=== PATIENT | male | born 1950 | race Caucasian/White ===

== ENCOUNTER 2018-02-25 16:27 | Observation (INO) | payer OTHER ==
[~2018-02-25] VITALS: Ht 182.9 cm; Wt 127.3 kg
[2018-02-25 17:38] LABS: ABSOLUTE BASOPHIL COUNT 0.1 /CUMM (0.0-0.2); ABSOLUTE EOSINOPHIL COUNT 0.4 /CUMM (0.0-0.7); ABSOLUTE LYMPH COUNT 2.7 /CUMM (1.2-3.4); BASOPHIL % 1.1 % (0.0-2.0); EOSINOPHIL % 3.7 % (0-5); GRANULOCYTE % 62.8 % (42.2-75.2); HEMATOCRIT 45.4 % (42-52); MEAN CORPUSCULAR HGB 28.9 PG (27.0-31.0); MEAN CORPUSCULAR HGB CONC 33.6 G/DL (33.0-37.0); MEAN PLATELET VOLUME 7.3 FL (7.4-10.4); PLATELET COUNT 241 /CUMM (130-400); RBC DISTRIBUTION WIDTH 14.1 % (11.5-14.5); RED BLOOD CELL CT 5.29 /CUMM (4.70-6.10); WHITE BLOOD CELL COUNT 11.2 /CUMM (4.8-10.8)
[2018-02-25 17:49] LABS: PT 11.8 SEC (9.4-12.5); PTT 29 SEC (25-37)
--- NOTE | 2018-02-25 18:19 | CT SCAN REPORT ---
EXAMINATION: CT HEAD WITHOUT CONTRAST CLINICAL INFORMATION: Blurred vision. COMPARISON: None TECHNIQUE: Contiguous axial imaging was performed from the skull base to vertex without intravenous administration of contrast. DLP: 640 mGy-cm FINDINGS: There is no evidence of acute intracranial hemorrhage or territorial infarction. No abnormal mass effect or midline shift is seen. [place] to white matter differentiation is well preserved. No extra-axial fluid collections are identified. The lateral ventricles are slightly prominent and so are the cortical sulci. There is no abnormal attenuation within the brain parenchyma. The osseous structures and soft tissues are normal. There is mild mucoperiosteal thickening bilateral ethmoid sinuses with a small retention cyst or polyp right maxillary sinus. Rest the paranasal sinuses and mastoid air cells are well-aerated. IMPRESSION: No acute intracranial process seen. Chronic bilateral ethmoid sinus inflammatory changes.
--- NOTE | 2018-02-25 19:04 | ED NEURO DEFICIT/STROKE ---
History of Present Illness General Chief Complaint: Neuro Symptoms/ Deficit Stated Complaint: SENT BY FOR NEURO SYMPTOMS Source: patient Exam Limitations: no limitations Allergies Coded Allergies: No Known Allergies (02/25/18) Triage Note: PT ER C/C "3 SECOND" EPISODE OF "WORDS BEING JUMBLED ON THE PAGE" OF WHAT HE WAS READING AND FEELING THOUGH HE WAS GOING TO PASS OUT. PT SPOKE WITH DESHAWN WATSON FROM DR. PERRIN'S OFFICE WHO ADVISED PT BE SEEN IN ER FOR R/O CVA. PT STATES AFTER THE EPISODE ALL SYMPTOMS RESOLVED AND HE WAS ABLE TO DRIVE TO AIRPORT. NEUROS INTACT IN TRIAGE, SPEECH CLEAR. Triage Nurses Notes Reviewed? yes Onset: Abrupt Timing: single episode today Severity: moderate, severe Vision Problem? Yes Glaucoma? No HPI: Pt is a 68 y/o WM with a PMH significant for TANJA, gout, HTN, HLD, who was advised to report to the ED by his PCP after stating that this morning at approx 9:30am the pt was reading a book when the words began to overlap and seem scrambled as well as having a feeling of "passing out," both of which lasted for approximately 2-3 seconds. Pt denies accompanying dizziness, lightheadedness, chest pain, extremity weakness, slurred speech, confusion prior to or post incident. Pt reports having two similar episodes several months ago. He denies a history of atrial fibrillation. He denies a hx of carotid plaques. He denies recent illness. He denies residual symptoms post incident this morning and currently feels like his normal self. Pt does report elevated lipids to >700 in the past for which he refuses to take medications, however, he states his last lipid levels revealed them to be <200. Pt states his bp has been well controlled to the best of his knowledge. His only other complaint is a possible gout flare in his left first toe. (Louis Snyder) Vital Signs & Intake/Output Vital Signs & Intake/Output Vital Signs Date Time Temp Pulse Resp B/P B/P Pulse O2 O2 Flow FiO2 Mean Ox Delivery Rate 02/26 0733 64 128/80 02/26 0654 97.0 64 18 128/80 97 CPAP 02/25 2355 95 02/25 2322 97.9 60 19 138/90 98 02/25 2150 97.0 60 18 133/76 98 Room Air 02/25 1845 98.2 63 18 136/81 98 Room Air 02/25 1801 Room Air 02/25 1639 98.0 69 18 104/73 96 Room Air ED Intake and Output 02/26 0000 02/25 1200 Intake Total Output Total Balance Patient 281 lb Weight Weight Estimated Measurement Method Reconcile Medications Albuterol Sulfate (Ventolin Hfa) 90 MCG HFA.AER.AD 2 PUF INH Q4-6 PRN PRN sob (Reported) Allopurinol 100 MG TABLET 1 TAB PO DAILY Gout (Reported) Colchicine 0.6 MG TABLET 1 TAB PO DAILY PRN gout attack (Reported) Hydrochlorothiazide 25 MG TABLET 25 MG PO DAILY HIGH BP . Metoprolol Succinate 200 MG TAB.ER.24H 1 TAB PO DAILY heart health (Reported) Potassium Chloride 20 MEQ TAB.ER.PRT 1 TAB PO DAILY heart health (Reported) Triamterene (Dyrenium) 50 MG CAPSULE 1.5 TAB PO DAILY High BP To take 75 mg daily (Ally NORIEGA,Den Murry) Past History Travel History Traveled to [place] past 21 day No Medical History Any Pertinent Medical History? see below for history Cardiovascular: hypertension Musculoskeletal: gout Tetanus Vaccine: Surgical History Surgical History: non-contributory Psychosocial History What is your primary language Gibraltarian Tobacco Use: Never used Family History Hx Contributory? No (Louis Snyder) Review of Systems Review of Systems Constitutional: Reports: no symptoms. EENTM: Reports: no symptoms. Respiratory: Reports: no symptoms. Cardiovascular: Reports: no symptoms. GI: Reports: no symptoms. Genitourinary: Reports: no symptoms. Musculoskeletal: Reports: no symptoms. Skin: Reports: no symptoms. Neurological/Psychological: Reports: see HPI. Hematologic/Endocrine: Reports: no symptoms. Immunologic/Allergic: Reports: no symptoms. All Other Systems: Reviewed and Negative (Louis Snyder) Physical Exam Physical Exam General Appearance: well developed/nourished, no apparent distress, alert, awake , comfortable Head: atraumatic, normal appearance Eyes: Bilateral: normal appearance, PERRL, EOMI. Ears, Nose, Throat: normal ENT inspection, moist mucous membrane Neck: supple, full range of motion Respiratory: normal breath sounds, chest non-tender, no respiratory distress Cardiovascular: regular rate/rhythm Peripheral Pulses: 2+ dorsalis pedis (R), 2+ dorsalis pedis (L) Gastrointestinal: soft, non-tender Back: normal inspection Extremities: normal range of motion, L first toe slightly erythemetous, tender to deep palpation. Psychiatric: awake, alert, oriented x 3 Cranial Nerves: normal hearing, normal speech, PERRL Coordination/Gait: normal finger to nose, Rapid alternating movements in tact Motor/Sensory: no motor/sensory deficits (strength 5/5, equal bilat U&LE) Skin: normal color Core Measures CVA/TIA Diagnosis: Yes Swallow Evaluation Pass Swallow eval date 02/25/18 Swallow eval time 2017 Sepsis Present: No Sepsis Focused Exam Completed? No (Charbel BISHOP,Louis) Progress Differential Diagnosis: acute glaucoma, Colon's Palsy, drug intoxication, electrolyte imbalance, encephalitis, hypoglycemia, intracranial Hem., intracranial mass/tumor, meningitis, migraine BROWN, seizure disorder, stroke, subarachnoid Hem., vertebrobasilar insuff. Plan of Care: Orders Procedure Date/time Status CONTIN. POS. AIRWAY PRESS. CHG 02/26 UNK Complete Diagnostic Imaging: Viewed by Me: CT Scan. Discussed w/RAD: CT Scan. Radiology Impression: PATIENT: TANVI REARDON PRESENT AGE: 68 PATIENT ACCOUNT NO: [id number] : 50 LOCATION: [facility] ORDERING PHYSICIAN: Magdy BISHOP SERVICE DATE: 02/25/18 EXAM TYPE: CAT - CT HEAD WO IV CONTRAST EXAMINATION: CT HEAD WITHOUT CONTRAST CLINICAL INFORMATION: Blurred vision. COMPARISON: None TECHNIQUE: Contiguous axial imaging was performed from the skull base to vertex without intravenous administration of contrast. DLP: 640 mGy-cm FINDINGS: There is no evidence of acute intracranial hemorrhage or territorial infarction. No abnormal mass effect or midline shift is seen. [place] to white matter differentiation is well preserved. No extra-axial fluid collections are identified. The lateral ventricles are slightly prominent and so are the cortical sulci. There is no abnormal attenuation within the brain parenchyma. The osseous structures and soft tissues are normal. There is mild mucoperiosteal thickening bilateral ethmoid sinuses with a small retention cyst or polyp right maxillary sinus. Rest the paranasal sinuses and mastoid air cells are well-aerated. IMPRESSION: No acute intracranial process seen. Chronic bilateral ethmoid sinus inflammatory changes. DICTATED BY: Mena NORIEGA,Tristan DATE/ TIME DICTATED:02/25/181812 ARTIFICIAL LEATHER CALENDER OPERATOR:KRISTY DATE/TIME TRANSCRIBED: 02/25/181812 CONFIDENTIAL, DO NOT COPY WITHOUT APPROPRIATE AUTHORIZATION. < Electronically signed in Other Vendor System> SIGNED BY: Tristan San MD 1818 Initial ED EKG: normal sinus rhythm, rate (64) (Louis Snyder) Departure Departure Disposition: STILL A PATIENT Condition: Stable Clinical Impression Primary Impression: TIA (transient ischemic attack) Referrals: Miya Perrin MD (PCP/Family) Departure Forms: Customer Survey General Discharge Information Observation Note Spoke With: Yobany NORIEGA,Gosia Physician Advisor Notified: JANET NORIEGA,GEE Murry Place Patient In: Non-ED OBS Care Area Rationale for Observation: My rational for observation is as follows . Patient will require repeat neuro checks. Cardiac telemetry. Carotid artery Dopplers. Neurology consultation. Cardiac consultation. echocardiogram. MRI of brain if available. (Louis Snyder) Departure Prescriptions: Current Visit Scripts Triamterene (Dyrenium) 1.5 TAB PO DAILY #45 TAB To take 75 mg daily Hydrochlorothiazide 25 MG PO DAILY #30 TAB . PA/COIN DEALER Co-Sign Statement Statement: ED Attending supervision documentation- [X] I saw and evaluated the patient. I have also reviewed all the pertinent lab results and diagnostic results. I agree with the findings and the plan of care as documented in the PA's/COIN DEALER's documentation. [X] I have reviewed the ED Record and agree with the PA's/COIN DEALER's documentation. [] Additions or exceptions (if any) to the PAs/COIN DEALER's note and plan are summarized below: [Telemetry for TIA, serial enzymes, telemetry monitoring, neurology consultation ] (lAly NORIEGA,Den Murry) LIPID PANEL 02/25 1726 Complete WESTERGREN SED RATE 02/25 1726 Complete TROPONIN LEVEL 02/25 170 Complete PARTIAL THROMBOPLASTIN TIME 02/25 170 Complete PROTHROMBIN TIME 02/25 170 Complete COMPREHENSIVE METABOLIC PANEL 02/25 170 Complete CBC WITHOUT DIFFERENTIAL 02/25 170 Complete CONTIN. POS. AIRWAY PRESS. CHG 02/25 UNK Complete Lab Add-on Test 02/25 UNK Active VTE Mechanical Prophylaxis 02/25 UNK Active MISTAKE 02/25 UNK Active Current Medications Sig/Andreina Start time Last Medication Dose Stop Time Status Admin Allopurinol 100 MG DAILY 02/26 1000 AC 02/26 (Zyloprim) 0732 Hydrochlorothiazide 50 MG DAILY 02/26 1000 AC 02/26 (Hydrodiuril) 0732 Metoprolol Succinate 200 MG DAILY 02/26 1000 AC 02/26 (Toprol Xl) 0733 Heparin Sodium 5,000 UNIT Q8 02/26 0600 AC (Porcine) Laboratory Tests 02/26/18 0638: Anion Gap 10, Estimated GFR > 60, BUN/Creatinine Ratio 15.8, CBC w Diff NO MAN DIFF REQ, RBC 5.21, MCV 86.8, MCH 29.0, MCHC 33.4, RDW 14.1, MPV 7.6, Gran % 59.9, Lymphocytes % 26.4, Monocytes % 8.9, Eosinophils % 4.2, Basophils % 0.6, Absolute Granulocytes 6.6 H, Absolute Lymphocytes 2.9, Absolute Monocytes 1.0 H, Absolute Eosinophils 0.5, Absolute Basophils 0.1, Urine Color YEL, Urine Clarity CLEAR, Urine pH 6.0, Ur Specific [place] 1.025, Urine Protein NEG, Urine Ketones NEG, Urine Nitrite NEG, Urine Bilirubin NEG, Urine Urobilinogen 0.2, Ur Leukocyte Esterase NEG, Ur Microscopic EXAM NOT REQUIRED, Urine Hemoglobin NEG, Urine Glucose NEG 02/26/18 0410: Troponin I < 0.01 02/25/18 1726: Anion Gap 9, Estimated GFR 50 L, BUN/Creatinine Ratio 14.3, Glucose 124 H, Calcium 9.5, Total Bilirubin 1.2, AST 25, ALT 22, Alkaline Phosphatase 70, Troponin I < 0.01, Total Protein 7.5, Albumin 4.1, Globulin 3.4, Albumin/ Globulin Ratio 1.2, Triglycerides 298 H, Cholesterol 187, LDL Cholesterol, Calc 78, HDL Cholesterol 50, Cholesterol/HDL Ratio 4, TSH 2.260, PT 11.8, INR 1.08, APTT 29, CBC w Diff NO MAN DIFF REQ, RBC 5.29, MCV 86.0, MCH 28.9, MCHC 33.6, RDW 14.1, MPV 7.3 L, Gran % 62.8, Lymphocytes % 23.9, Monocytes % 8.5, Eosinophils % 3.7, Basophils % 1.1, Absolute Granulocytes 7.0 H, Absolute Lymphocytes 2.7, Absolute Monocytes 1.0 H, Absolute Eosinophils 0.4, Absolute Basophils 0.1, ESR Westergren 13 H (Ally NORIEGA,Den Murry) Departure Departure Disposition: STILL A PATIENT Condition: Stable Clinical Impression Primary Impression: TIA (transient ischemic attack) Referrals: Miya Perrin MD (PCP/Family) Departure Forms: Customer Survey General Discharge Information Observation Note Spoke With: Gosia Haywood MD Physician Advisor Notified: JANET NORIEGA,GEE [address] Patient In: Non-ED OBS Care Area Rationale for Observation: My rational for observation is as follows . Patient will require repeat neuro checks. Cardiac telemetry. Carotid artery Dopplers. Neurology consultation. Cardiac consultation. echocardiogram. MRI of brain if available. (Louis Snyder) PA/COIN DEALER Co-Sign Statement Statement: ED Attending supervision documentation- [X] I saw and evaluated the patient. I have also reviewed all the pertinent lab results and diagnostic results. I agree with the findings and the plan of care as documented in the PA's/COIN DEALER's documentation. [X] I have reviewed the ED Record and agree with the PA's/COIN DEALER's documentation. [] Additions or exceptions (if any) to the PAs/COIN DEALER's note and plan are summarized below: [Telemetry for TIA, serial enzymes, telemetry monitoring, neurology consultation ] (Ally NORIEGA,Den Murry)
[2018-02-25] MEDS ORDERED: ALLOPURINOL100 M1 PO (21:05)
[2018-02-25] MEDS ORDERED: VENTOLIN HFA18 GM INH (21:06)
[2018-02-25] MEDS ORDERED: COLCHICINE0.6 M2 PO (21:06)
[2018-02-25] MEDS ORDERED: POTASSIUM CHLO20 ME2 PO (21:07)
[2018-02-25] MEDS ORDERED: METOPROLOL SUC200 M2 PO (21:08)
[2018-02-25] MEDS ORDERED: MAXZIDE 75 MG-1 EACH PO (21:08)
--- NOTE | 2018-02-25 23:06 | History & Physical ---
Charlie Tineo MD 02/25/18 1516: General Information and HPI MD Statement: I have seen and personally examined TANVI REARDON and documented this H&P. The patient is a 68 year old M who presented with a patient stated chief complaint of felt faint and trouble reading. Source of Information: patient, old records Exam Limitations: no limitations History of Present Illness: 68 year old male with past medical history significant for hypertension, hyperlipidemia, diverticulosis, gout, "lazy eye", and TANJA on CPAP 4cm h2o presented with complaints of presyncope and difficulty reading. The patient states he was reading at approximately 0930 this morning when he felt suddenly that the two pages were merging and "scrambled" and has having difficulty reading. Simultaneously he reported feeling lightheaded like he was going to pass out but did not. These symptoms resolved less than a minute and he felt well and was able to drive his to the airport. He called his primary care office in the afternoon but was advised to go to the emergency department because he was unable to come in for evaluation in the office at that time. He said that his vision problems improved when he closed his left eye and that there was no loss of clarity to the letters or loss of visual acuity. He states that he has had a total of three episodes in the past couple months. The first was very similar while seated and doing a word search puzzles, the second in the kitchen standing suddenly from a seated position without visual component, and the third episode was this morning. He wears glasses for distance. He endorses left ear pain a few days ago, and occasional tinnitus. He denies fevers, chills , sore throat, nasal or sinus tenderness, vertigo, falls, gait instability, headache or jaw claudication. He had a gout flare four days ago in the left great toe for which he took colchicine and has subsequently resolved. Review of systems was otherwise negative for chest pain, cough, dyspnea, abdominal pain, nausea, vomiting, diarrhea, constipation or dysuria. In the ED, he had a negative NCHCT and was admitted to telemetry for observation. Allergies/Medications Allergies: Coded Allergies: No Known Allergies (02/25/18) Home Med list Albuterol Sulfate (Ventolin Hfa) 90 MCG HFA.AER.AD 2 PUF INH Q4-6 PRN PRN sob (Reported) Allopurinol 100 MG TABLET 1 TAB PO DAILY Gout (Reported) Colchicine 0.6 MG TABLET 1 TAB PO DAILY PRN gout attack (Reported) Metoprolol Succinate 200 MG TAB.ER.24H 1 TAB PO DAILY heart health (Reported) Potassium Chloride 20 MEQ TAB.ER.PRT 1 TAB PO DAILY heart health (Reported) Triamterene/Hydrochlorothiazid (Maxzide 75 MG-50 MG Tablet) 75 MG-50 MG TABLET 1 TAB PO DAILY htn (Reported) Compliance With Home Meds: GOOD Past History Travel History Traveled to [place] past 21 day No Medical History Blood Transfusion Hx: No EENT: "LAZY EYE" Cardiovascular: hypertension Musculoskeletal: gout Isolation History: Standard Tetanus Vaccine: Surgical History Surgical History: cholecystectomy, R knee, tonsillectomy Past Family/Social History Psychosocial History Smoking Status: Never Smoked Functional Ability ADLs Independent: dressing, eating, toileting, bathing. Ambulation: independent IADLs Independent: shopping, housework, finances, food prep, telephone, transportation , medication admin. Review of Systems Review of Systems Constitutional: Denies: chills, diaphoresis, fever, malaise, weakness. EENTM: Reports: blurred vision, double vision, visual changes, ear pain. Cardiovascular: Denies: chest pain, edema, palpitations, peripheral edema, syncope. Respiratory: Denies: cough, short of breath, sputum production. GI: Denies: abdominal pain, constipation, diarrhea, melena, nausea. Genitourinary: Denies: dysuria, frequency. Musculoskeletal: Reports: no symptoms. Skin: Reports: no symptoms. Neurological/Psychological: Denies: ataxia, headache, numbness, paresthesia, weakness. Hematologic/Endocrine: Reports: no symptoms. Immunologic/Allergic: Reports: no symptoms. All Other Systems: Reviewed and Negative Exam & Diagnostic Data Last 24 Hrs of Vital Signs/I&O Vital Signs Date Time Temp Pulse Resp B/P B/P Pulse O2 O2 Flow FiO2 Mean Ox Delivery Rate 02/25 2355 95 02/25 2322 97.9 60 19 138/90 98 02/25 2150 97.0 60 18 133/76 98 Room Air 02/25 1845 98.2 63 18 136/81 98 Room Air 02/25 1801 Room Air 02/25 1639 98.0 69 18 104/73 96 Room Air Intake & Output 02/26 0800 04 0000 04/02 1600 Intake Total Output Total Balance Patient 127.261 kg Weight Weight Estimated Measurement Method Physical Exam General Appearance Alert, Oriented X3, Cooperative, No Acute Distress Cardiovascular Regular Rate, Normal S1, Normal S2, No Murmurs Lungs Clear to Auscultation, Normal Air Movement Abdomen Normal Bowel Sounds, Soft, No Tenderness, No Masses Neurological Normal Gait, Normal Speech, Strength at 5/5 X4 Ext, Normal Tone, Sensation Intact, cranial nerves intact other than failure to adduct right eye on accomodation but all visual lundy and acuity intact and disconjugate eye movements on tracking, tatum hallpike negative Extremities No Clubbing, No Cyanosis, No Edema, Normal Pulses Last 24 Hrs of Labs/Mitchel: Laboratory Tests 02/26/18 0410: Troponin I Pending 02/25/18 1726: Anion Gap 9, Estimated GFR 50 L, BUN/Creatinine Ratio 14.3, Glucose 124 H, Calcium 9.5, Total Bilirubin 1.2, AST 25, ALT 22, Alkaline Phosphatase 70, Troponin I < 0.01, Total Protein 7.5, Albumin 4.1, Globulin 3.4, Albumin/ Globulin Ratio 1.2, Triglycerides Pending, Cholesterol Pending, LDL Cholesterol, Calc Pending, HDL Cholesterol Pending, Cholesterol/HDL Ratio Pending, TSH 2.260, PT 11.8, INR 1.08, APTT 29, CBC w Diff NO MAN DIFF REQ, RBC 5.29, MCV 86.0, MCH 28.9, MCHC 33.6, RDW 14.1, MPV 7.3 L, Gran % 62.8, Lymphocytes % 23.9, Monocytes % 8.5, Eosinophils % 3.7, Basophils % 1.1, Absolute Granulocytes 7.0 H, Absolute Lymphocytes 2.7, Absolute Monocytes 1.0 H, Absolute Eosinophils 0.4 , Absolute Basophils 0.1, ESR Westergren 13 H Diagnostic Data EKG Results sinus rhythm HR 64, TWI in v1 and v2 Other Results NCHCT There is no evidence of acute intracranial hemorrhage or territorial infarction. No abnormal mass effect or midline shift is seen. [place]ios to white matter differentiation is well preserved. No extra-axial fluid collections are identified. The lateral ventricles are slightly prominent and so are the cortical sulci. There is no abnormal attenuation within the brain parenchyma. The osseous structures and soft tissues are normal. There is mild mucoperiosteal thickening bilateral ethmoid sinuses with a small retention cyst or polyp right maxillary sinus. Rest the paranasal sinuses and mastoid air cells are well-aerated. echo 08/2013 Tecehnically dificult and suboptimal study. Mild concentric left ventricular hypertrophy. Normal left ventricular ejection fraction visually estimated at >65 Abnormal relaxation filling pattern of the left ventricle for age (stage 1 diastolic dysfunction). Borderline dilated ascending aorta. No significant valve abnormalities. Physiologic valvular regurgitation. Assessment/Plan Assessment: 68 year old male with past medical history significant for hypertension, hyperlipidemia, diverticulosis, gout, "lazy eye", and TANJA on CPAP 4cm h2o presented with complaints of presyncope and difficulty reading. Presyncope: NCHCT negative for acute hemorrhage or ischemic infarction TIA unlikely, visual complaints are not acute Check carotid doppler Orthostatic vital signs negative Check serial troponins and EKGs to evaluate for myocardial ischemia Check echocardiogram Start aspirin and statin therapy Cardiology consultation Q4H neurochecks Repeat CT Head for any acute mental status changes Elevated creatinine: 1.4 on arrival, previously 1.2 Holding triamterene Orthostatics negative Continuing HCTZ Avoid further nephrotoxic agents Repeat renal function tomorrow Mild leukocytosis: WBC 11.2, without bandemia or signs and symptoms of infection Follow up WBC on morning CBC HTN: Continue metoprolol Hold triamterene Continue HCTZ HLD: Check lipid panel and start statin therapy TANJA: TRC-CPAP set up Visual complaint with disconjugate eye movements: Outpatient opthalmology referral Heart healthy diet DVT ppx-heparin 5000 units subcutaneous q8h Full code As Ranked By This Provider Problem List: 1. Pre-syncope Core Measures/Misc (08/12) Acute Coronary Syndrome ACS Diagnosis: No Congestive Heart Failure Congestive Heart Failure Diagnosis No Cerebrovascular Accident CVA/TIA Diagnosis: No VTE (View Protocol) VTE Risk Factors Age>40 No Mechanical VTE Prophylaxis d/t N/A MechProphylax Ordered No VTE Pharm Prophylaxis d/t NA PharmProphylax ordered Sepsis (View protocol) Sepsis Present: No Gosia Haywood 02/26/18 0335: Attending MD Review Statement Attending Statement Attending MD Statement: examined this patient, discuss w/resident/PA/CONTROL INTEGRATION ENGINEER, agreed w/resident/PA/CONTROL INTEGRATION ENGINEER, reviewed EMR data (avail), reviewed images, amended to note Attending Assessment/Plan: CC: Dizziness PMH: TANJA on CPAP, gout, HTN, HLD Patient came to ER for a brief episode of dizziness. He states that he was reading a book and he felt like both pages of the books were merging and felt like almost passing out. But he did not actually pass out. These symptoms lasted for a few seconds. He called his primary care office who suggested to go to ER for further evaluation. Patient had 3 such episodes in last 2 months. Patient states that his vision with left eye was worse but then it improved. He also endorses mild tinnitus. He denies any chest pain, shortness of breath, nausea, vomiting, fever, chills, cough, expectoration. Vitals: Afebrile, pulse is 60s, RR 18, blood pressure 104/73 on arrival, saturating well on room air. On exam: A O 3, cooperative, no acute distress, neck supple, JVD normal, no lymphadenopathy, mucosa moist, PERRLA, EOMI, no focal neurological deficit, no dependent edema, no obvious skin rashes or inflammation CVS: S1-S2, RRR. RS: Clear to auscultate bilaterally. Abdomen: Soft, NT, ND, bowel sounds present. CT head: No acute intracranial process seen. Chronic bilateral ethmoid sinus inflammatory changes. Assessment and plan 68-year-old male presented in ER after an episode of "almost passing out", it happened at rest, lasted a few seconds, not associated with chest pain, diaphoresis. It was not preceded by any coughing spell, urination or bowel movement less likely vasovagal. ECG shows normal sinus rhythm, complete examination unremarkable but patient's blood pressure was 104/73 on arrival. Orthostatic was negative. Unclear etiology of presyncopal episode. Given that he has 3 such episodes in last 2 months, he would benefit from observation on telemetry and evaluation for presyncope. + Presyncopal episode + ? Vision changes + History of TANJA on CPAP, gout, HTN, HLD - Place in observation on telemetry - Continuous telemetry monitoring - Serial troponin and EKG - Orthostatic vitals in a.m. - 2-D echocardiogram in a.m. - carotid doppler - Hold triamterene, continue HCTZ only, continue metoprolol - Cardiology consult - DVT prophylaxis - Adequate pain control - Outpatient ophthalmology evaluation - Serial neuro checks Gladys NORIEGA,[facility] 02/26/18 0351: Resident Review Statement Resident Statement: examined this patient, discussed with international accountant, agreed with international accountant, discussed with family Other Findings: 68-year-old male with a past medical history of gout, HTN, HLD, and obstructive sleep apnea on CPAP who presented with a chief complaint of brief episode of blurry vision and dizziness that lasted for few less than a minute. The patient reported that he was reading a book when he suddenly had difficulty focusing on the word and felt mildly dizzy. He reported that when he closes his left eye has symptom improved. 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 The patient had 2 more episodes during the last 2 months. He reported mild ear tinnitus but denies hearing change, ear discharge, ear pain. He denies chest pain, shortness breath, weakness, numbness, or loss of consciousness. On admission: Vitals BP 104/70, HR 60s, RR 18, afebrile and saturating well on room air. Significant labs leukocytosis 11.2, bicarbonate 36, creatinine 1.4, glucose 124, and normal TSH. Head CT no acute intracranial pathology. Physical Exam: Alert and oriented X3, not in acute distress. CVS normal S1/S2, RRR, without MRGs, Resp CTA BL without additional sounds. Normal abdominal exam. Neuro normal strength and sensation X4 with normal cranial nerves except for abnormal eye convergence. Assessment The patient presented with symptoms of presyncopal, he is on beta tatum and triamterene/HCTZ. His symptom possibly orthostatic as one of his episodes was after he stood from sitting position. His last episode happened during sitting and reading a book for which the patient may benefit from telemetry and carotid ultrasound. Problem list * Presyncopal episode * Blurry vision patient left eye * History of obstructive sleep apnea on CPAP * Hypertension * Hyperlipidemia * Gout * Elevated creatinine up to 1.4, unknown baseline possibly FAHEEM * Mild leukocytosis Plan * Monitoring telemetry as an OBS patient * Continue metoprolol and hydralazine * We'll hold triamterene * Carotid ultrasound. * ESR to rule out temporal arteritis * Rule out ACS with serial EKG and troponin * Echocardiogram * Cardiology consult * Continue allopurinol * Continue nighttime CPAP * Repeat renal function tomorrow * We will send for UA given elevated WBCs -Heart healthy diet -DVT prophylaxis with heparin -FC
[2018-02-25 23:22] VITALS: BP 138/90
[2018-02-26 06:54] VITALS: BP 128/80
[2018-02-26 08:29] LABS: ABSOLUTE BASOPHIL COUNT 0.1 /CUMM (0.0-0.2); ABSOLUTE EOSINOPHIL COUNT 0.5 /CUMM (0.0-0.7); ABSOLUTE GRANULOCYTE CT 6.6 /CUMM (1.4-6.5); ABSOLUTE LYMPH COUNT 2.9 /CUMM (1.2-3.4); BASOPHIL % 0.6 % (0.0-2.0); EOSINOPHIL % 4.2 % (0-5); GRANULOCYTE % 59.9 % (42.2-75.2); HEMATOCRIT 45.2 % (42-52); MEAN CORPUSCULAR HGB CONC 33.4 G/DL (33.0-37.0); MEAN CORPUSCULAR VOLUME 86.8 FL (80.0-94.0); MEAN PLATELET VOLUME 7.6 FL (7.4-10.4); PLATELET COUNT 234 /CUMM (130-400); RBC DISTRIBUTION WIDTH 14.1 % (11.5-14.5); RED BLOOD CELL CT 5.21 /CUMM (4.70-6.10)
--- NOTE | 2018-02-26 08:45 | Patient Discharge Instructions ---
Discharge Instructions General Discharge Information Special Instructions: Please follow up with your PCP in 3-5 days Please follow up with the poultry farm laborer isidra 7 days, We provided you with a referral. Should your symptoms return, please come back to the ED. Diet Recommended Diet: Low Salt Activity Full Activity/No Limits: No Acute Coronary Syndrome Inclusion Criteria At DC or during hospital stay patient has or had the following: ACS DIAGNOSIS No Discharge Core Measures Meds if any: Prescribed or Continued at Discharge Meds if any: NOT Prescribed or Continued at Discharge Congestive Heart Failure Inclusion Criteria At DC or during hospital stay patient has or had the following: CHF DIAGNOSIS No Discharge Core Measures Meds if any: Prescribed or Continued at Discharge Meds if any: NOT Prescribed or Continued at Discharge Cerebrovascular accident Inclusion Criteria At DC or during hospital stay patient has or had the following: CVA/TIA Diagnosis No Discharge Core Measures Meds if any: Prescribed or Continued at Discharge Meds if any: NOT Prescribed or Continued at Discharge Venous thromboembolism Inclusion Criteria VTE Diagnosis No VTE Type NONE VTE Confirmed by (Test) NONE Discharge Core Measures - Per Current guidelines, there needs to be overlap - treatment for the first 5 days of Warfarin therapy. - If discharged on Warfarin prior to 5 days of - overlap therapy, the patient will need to be - assessed for post discharge needs including - *Post discharge parental anticoagulation - *Warfarin and/or parental anticoagulation education - *Follow up date to check INR post discharge At least 5 days overlap therapy as Inpatient No Meds if any: Prescribed or Continued at Discharge Note: Overlap Therapy is Warfarin and Anticoagulant Meds if any: NOT Prescribed or Continued at Discharge
--- NOTE | 2018-02-26 09:28 | Cons- Cardiology ---
General Information and HPI Consulting Request Date of Consult: 02/26/18 Requested By: Dylan Hurley MD Reason for Consult: Question TIA in a patient with underlying hypertension and dyslipidemia. Source of Information: patient, old records Exam Limitations: no limitations History of Present Illness: Mr. Alec Felipe is a 68-year-old man with underlying hypertension but no known heart disease. He presents yesterday with a few episodes of weakness, presyncope and visual blurring while he was reading. He did not have any specific neurologic defects. He denies any underlying heart disease or cardiac symptoms such as chest pain, shortness of breath except on more than usual exertion, palpitations, dizziness, syncope. He is on metoprolol, Dyazide and potassium at home. His never been treated for dyslipidemia. He had a cardiac workup in 2012 including an echocardiogram showing no major abnormalities and a stress test in 2013 showing poor exercise tolerance but was otherwise a negative test. At the time he was much heavier apparently. So far his workup shows a creatinine of 1.4 on admission, which is down to 1.2, 2 negative troponins, normal EKGs 2. CAT scan of the head was negative. Chest x-ray does not appear to have been done. Today he is feeling well. He has no symptoms either neurologic or cardiac. He is eager to be discharged but is willing to stay for a couple of tests. He is pending an echocardiogram and carotid ultrasound. Allergies/Medications Allergies: Coded Allergies: No Known Allergies (02/25/18) Home Med List: Albuterol Sulfate (Ventolin Hfa) 90 MCG HFA.AER.AD 2 PUF INH Q4-6 PRN PRN sob (Reported) Allopurinol 100 MG TABLET 1 TAB PO DAILY Gout (Reported) Colchicine 0.6 MG TABLET 1 TAB PO DAILY PRN gout attack (Reported) Hydrochlorothiazide 25 MG TABLET 25 MG PO DAILY HIGH BP . Metoprolol Succinate 200 MG TAB.ER.24H 1 TAB PO DAILY heart health (Reported) Potassium Chloride 20 MEQ TAB.ER.PRT 1 TAB PO DAILY heart health (Reported) Triamterene (Dyrenium) 50 MG CAPSULE 1.5 TAB PO DAILY High BP To take 75 mg daily Current Medications: Current Medications Sig/Andreina Start time Last Medication Dose Route Stop Time Status Admin Allopurinol 100 MG DAILY 02/26 1000 AC 02/26 PO 0732 Heparin Sodium 5,000 UNIT Q8 02/26 0600 AC (Porcine) SC Hydrochlorothiazide 50 MG DAILY 02/26 1000 AC 02/26 PO 0732 Metoprolol Succinate 200 MG DAILY 02/26 1000 AC 02/26 PO 0733 Review of Systems Review of Systems: He has no other complaints in the review of systems at this time Past History Travel History Traveled to [place] past 21 day No Medical History Blood Transfusion Hx: No EENT: "LAZY EYE" Cardiovascular: hypertension Musculoskeletal: gout Surgical History Surgical History: cholecystectomy, R knee, tonsillectomy Psychosocial History Smoking Status: Never Smoked Functional Ability ADLs Independent: dressing, eating, toileting, bathing. Ambulation: independent IADLs Independent: shopping, housework, finances, food prep, telephone, transportation , medication admin. Exam & Diagnostic Data Vital Signs and I&O Vital Signs Date Time Temp Pulse Resp B/P B/P Pulse O2 O2 Flow FiO2 Mean Ox Delivery Rate 02/26 0733 64 128/80 02/26 0654 97.0 64 18 128/80 97 CPAP 02/25 2355 95 02/25 2322 97.9 60 19 138/90 98 02/25 2150 97.0 60 18 133/76 98 Room Air 02/25 1845 98.2 63 18 136/81 98 Room Air 02/25 1801 Room Air 02/25 1639 98.0 69 18 104/73 96 Room Air Intake & Output 02/26 1600 02/26 0800 / 0000 02/25 1600 02/25 0800 02/25 0000 Intake Total 120 Output Total Balance 120 Intake, Oral 120 Patient 281 lb Weight Weight Estimated Measurement Method Physical Exam: Late middle-aged man alert and pleasant, in no acute distress HEENT exam normal except for abnormal eye movements which are previously known. Neck veins not distended Carotids normal Chest clear Heart regular rhythm, soft heart sounds, no murmurs. Extremities good pulses no edema Labs/Mitchel Results: Laboratory Tests 02/26 02/26 0638 0410 Chemistry Sodium (137 - 145 mmol/L) 139 Potassium (3.5 - 5.1 mmol/L) 3.5 Chloride (98 - 107 mmol/L) 96 L Carbon Dioxide (22 - 30 mmol/L) 33 H Anion Gap (5 - 16) 10 BUN (9 - 20 mg/dL) 19 Creatinine (0.7 - 1.2 mg/dL) 1.2 Estimated GFR (>60 ml/min) > 60 BUN/Creatinine Ratio (7 - 25 %) 15.8 Troponin I (<0.11 ng/ml) < 0.01 Hematology CBC w Diff NO MAN DIFF REQ WBC (4.8 - 10.8 /CUMM) 11.0 H RBC (4.70 - 6.10 /CUMM) 5.21 Hgb (14.0 - 18.0 G/DL) 15.1 Hct (42 - 52 %) 45.2 MCV (80.0 - 94.0 FL) 86.8 MCH (27.0 - 31.0 PG) 29.0 MCHC (33.0 - 37.0 G/DL) 33.4 RDW (11.5 - 14.5 %) 14.1 Plt Count (130 - 400 /CUMM) 234 MPV (7.4 - 10.4 FL) 7.6 Gran % (42.2 - 75.2 %) 59.9 Lymphocytes % (20.5 - 51.1 %) 26.4 Monocytes % (1.7 - 9.3 %) 8.9 Eosinophils % (0 - 5 %) 4.2 Basophils % (0.0 - 2.0 %) 0.6 Absolute Granulocytes (1.4 - 6.5 /CUMM) 6.6 H Absolute Lymphocytes (1.2 - 3.4 /CUMM) 2.9 Absolute Monocytes (0.10 - 0.60 /CUMM) 1.0 H Absolute Eosinophils (0.0 - 0.7 /CUMM) 0.5 Absolute Basophils (0.0 - 0.2 /CUMM) 0.1 Urines Urine Color (YEL,AMB,STR) YEL Urine Clarity (CLEAR) CLEAR Urine pH (5.0 - 8.0) 6.0 Ur Specific [place] (1.001 - 1.035) 1.025 Urine Protein (NEG,<30 MG/DL) NEG Urine Ketones (NEG) NEG Urine Nitrite (NEG) NEG Urine Bilirubin (NEG) NEG Urine Urobilinogen (0.1 - 1.0 EU/dl) 0.2 Ur Leukocyte Esterase (NEG) NEG Ur Microscopic EXAM NOT REQUIRED Urine Hemoglobin (NEG) NEG Urine Glucose (N MG/DL) NEG 02/25 1726 Chemistry Sodium (137 - 145 mmol/L) 140 Potassium (3.5 - 5.1 mmol/L) 3.5 Chloride (98 - 107 mmol/L) 95 L Carbon Dioxide (22 - 30 mmol/L) 36 H Anion Gap (5 - 16) 9 BUN (9 - 20 mg/dL) 20 Creatinine (0.7 - 1.2 mg/dL) 1.4 H Estimated GFR (>60 ml/min) 50 L BUN/Creatinine Ratio (7 - 25 %) 14.3 Glucose (65 - 99 mg/dL) 124 H Calcium (8.4 - 10.2 mg/dL) 9.5 Total Bilirubin (0.2 - 1.3 mg/dL) 1.2 AST (17 - 59 U/L) 25 ALT (21 - 72 U/L) 22 Alkaline Phosphatase (< 127 U/L) 70 Troponin I (<0.11 ng/ml) < 0.01 Total Protein (6.3 - 8.2 g/dL) 7.5 Albumin (3.5 - 5.0 g/dL) 4.1 Globulin (1.9 - 4.2 gm/dL) 3.4 Albumin/Globulin Ratio (1.1 - 2.2 %) 1.2 Triglycerides (<150 mg/dL) 298 H Cholesterol (< 200 MG/DL) 187 LDL Cholesterol, Calc (65 - 129 mg/dL) 78 HDL Cholesterol (40 - 60 mg/dL) 50 Cholesterol/HDL Ratio (0.00 - 4.88 %) 4 TSH (0.270 - 4.200 uIU/mL) 2.260 Coagulation PT (9.4 - 12.5 SEC) 11.8 INR (0.90 - 1.17) 1.08 APTT (25 - 37 SEC) 29 Hematology CBC w Diff NO MAN DIFF REQ WBC (4.8 - 10.8 /CUMM) 11.2 H RBC (4.70 - 6.10 /CUMM) 5.29 Hgb (14.0 - 18.0 G/DL) 15.3 Hct (42 - 52 %) 45.4 MCV (80.0 - 94.0 FL) 86.0 MCH (27.0 - 31.0 PG) 28.9 MCHC (33.0 - 37.0 G/DL) 33.6 RDW (11.5 - 14.5 %) 14.1 Plt Count (130 - 400 /CUMM) 241 MPV (7.4 - 10.4 FL) 7.3 L Gran % (42.2 - 75.2 %) 62.8 Lymphocytes % (20.5 - 51.1 %) 23.9 Monocytes % (1.7 - 9.3 %) 8.5 Eosinophils % (0 - 5 %) 3.7 Basophils % (0.0 - 2.0 %) 1.1 Absolute Granulocytes (1.4 - 6.5 /CUMM) 7.0 H Absolute Lymphocytes (1.2 - 3.4 /CUMM) 2.7 Absolute Monocytes (0.10 - 0.60 /CUMM) 1.0 H Absolute Eosinophils (0.0 - 0.7 /CUMM) 0.4 Absolute Basophils (0.0 - 0.2 /CUMM) 0.1 ESR Westergren (0 - 10 MM) 13 H Diagnostic Data EKG Results EKG on admission shows sinus rhythm rate 64 with a small incomplete right bundle branch block and borderline T-wave inversion in V2. This is a borderline EKG. Repeat EKG this morning is unchanged. CXR Results Not done initially, Done next day: PATIENT: ALEC FELIPE PRESENT AGE: 68 PATIENT ACCOUNT NO: [id number] : 50 LOCATION: [facility] ORDERING PHYSICIAN: Latoya Peterson MD SERVICE DATE: 02/26/18- EXAM TYPE: RAD - XRY-CHEST XRAY, TWO VIEWS EXAMINATION: XR CHEST CLINICAL INFORMATION: Rule out acute pathology. Elevated white blood cell count COMPARISON: 05/05/2016 TECHNIQUE: 2 views of the chest were obtained. FINDINGS: Chronic coarse interstitial prominence. No focal consolidation or mass. No pleural effusion or pneumothorax. Normal pulmonary vascularity. Cardiac silhouette remains enlarged. There are degenerative changes of the thoracic spine. IMPRESSION: No acute pulmonary disease. Diffuse chronic interstitial prominence. DICTATED BY: Alec Barrios MD DATE/TIME DICTATED:02/26/181604 LABOR RELATIONS TEACHER:KRISTY DATE/TIME TRANSCRIBED:02/26/181604 CONFIDENTIAL, DO NOT COPY WITHOUT APPROPRIATE AUTHORIZATION. <Electronically signed in Other Vendor System> SIGNED BY: Alec Barrios MD 1611 Other Results CONCLUSIONS Mild concentric left ventricular hypertrophy. Normal left ventricular ejection fraction visually estimated at >65 Abnormal relaxation filling pattern of the left ventricle for age (stage 1 diastolic dysfunction). The left atrium is normal in size. The mitral valve is normal in structure and function. The mitral valve is normal in structure and function. Focal thickening of the aortic valve cusps. No aortic stenosis. Unable to estimate the right ventricular systolic pressure. Borderline dilated ascending aorta. The aortic arch and great vessels are not well seen. Levar Henao M.D. (Electronically Signed) Final Date: 26 February 2018 12:28 Carotid Doppler: IMPRESSION: No evidence of a hemodynamically significant stenosis involving the internal carotid arteries. DICTATED BY: Zana Verduzco MD DATE/TIME DICTATED:02/26/181213 LABOR RELATIONS TEACHER:KRISTY DATE/TIME TRANSCRIBED:02/26/181213 Assessment/Plan Assessment/Plan The patient is a 68-year-old man with 3 episodes of blurry vision and near syncope and weakness. I suspect his symptoms are due to relative hypotension. He was a little prerenal based on his elevated creatinine and may be a little volume depleted. I suggest cutting back his hydrochlorothiazide to 25 mg daily. His potassium was borderline at 3.5 and he does take potassium at home and this should be reinstituted. His echocardiogram and carotid ultrasound should be done shortly. If those are negative he can probably be discharged. A chest x-ray should be done for completeness. Copies To: Miya Smith MD Consult Acknowledgment - Thank you for your consult request.
--- NOTE | 2018-02-26 11:51 | PN-Observation ---
Nicholas NORIEGA,[facility] 02/26/18 1151: Observation Note Observation Note _ I have personally examined TANVI REARDON. him disposition is uncertain at this time. Before a determination can be made, he requires continued observation for the following reasons , he would benefit from continued observation to ensure that he does not suffer any neurological events or syncope which may result in trauma to the head and possibly hemodynamic instability. Assessment/Plan Medical Assessment: Mr Reardon is a 68 year old male with past medical history significant for hypertension, hyperlipidemia, diverticulosis, gout, "lazy eye", and TANJA on CPAP 4cm h2o presented with complaints of presyncope and difficulty reading. Presyncope: NCHCT negative for acute hemorrhage or ischemic infarction Check carotid doppler Orthostatic vital signs negative Check serial troponin, initial troponins WNL. Awaiting echocardiogram Cardiology consultation, obtained. Q4H neurochecks Repeat CT Head for any acute mental status changes Elevated creatinine: 1.4 on arrival, previously 1.2 Holding triamterene Orthostatics negative Continuing HCTZ, cardiology reccomended that we decreased the dose to 25 mg from 50. Avoid further nephrotoxic agents Mild leukocytosis: WBC 11.2, without bandemia or signs and symptoms of infection Follow up WBC on morning CBC * C-xray to rule out acute pathology vs infection. HTN: Continue metoprolol Hold triamterene, can continue as outpatient therapy. Continue HCTZ HLD: Lipid Panel * Will inform PCP of elevated triglycerides, may benefit from a fibrate. TANJA: TRC * Continue CPAP, Visual complaint with disconjugate eye movements: Outpatient opthalmology referral * Will inform PCP to provide referral. Heart healthy diet DVT ppx-heparin 5000 units subcutaneous q8h Full code Problem List: 1. Pre-syncope DVT/Prophylaxis: pharmacological Subjective Follow-up For: presyncope Subjective: Mr Reardon was seen and examined this morning. Reports no issues overnight. States that he feels better. Does not endorse on vision changes, dysarthria or motor or sensory weakness. States that he would like to eat, stating he has not eaten since yesterday. Denies any neurological deficits. States that he would like to be discharged sooner rather than later owing to the fact that he has a child who is home alone that he is concerned about. Review of Systems Constitutional: Reports: see HPI. Objective Last 24 Hrs of Vital Signs/I&O Vital Signs Date Time Temp Pulse Resp B/P B/P Pulse O2 O2 Flow FiO2 Mean Ox Delivery Rate 02/26 1415 98.5 68 20 136/80 97 Room Air 02/26 0733 64 128/80 04/03 0654 97.0 64 18 128/80 97 CPAP 02/25 2355 95 02/25 2322 97.9 60 19 138/90 98 02/25 2150 97.0 60 18 133/76 98 Room Air 02/25 1845 98.2 63 18 136/81 98 Room Air 02/25 1801 Room Air Intake & Output 02/26 1600 02/26 0800 04 0000 Intake Total 850 120 Output Total Balance 850 120 Intake, Oral 850 120 Patient 127.261 kg Weight Weight Estimated Measurement Method Physical Exam General Appearance: Alert, Oriented X3, Cooperative HEENT: Mucous Membr. moist/pink Cardiovascular: Regular Rate, Normal S1, Normal S2 Lungs: Clear to Auscultation Abdomen: Normal Bowel Sounds, Soft, No Tenderness Neurological: Normal Gait, Normal Speech, Strength at 5/5 X4 Ext, Normal Tone, Sensation Intact, Cranial Nerves 3-12 NL Extremities: No Cyanosis, No Edema Current Medications: Current Medications Sig/Andreina Start time Last Medication Dose Route Stop Time Status Admin Allopurinol 100 MG DAILY 02/26 1000 DCD 02/26 PO 0732 Heparin Sodium 5,000 UNIT Q8 02/26 0600 DCD (Porcine) SC Hydrochlorothiazide 25 MG DAILY 02/27 1000 DCD PO Hydrochlorothiazide 50 MG DAILY 02/26 1000 DC 02/26 PO 0732 Metoprolol Succinate 200 MG DAILY 02/26 1000 DCD 02/26 PO 0733 Patient Medication 1 ED ONE ONE 02/26 1445 OR Teaching ED 02/26 1446 Last 24 Hrs of Labs/Mics: Laboratory Tests 02/26/18 0638: Anion Gap 10, Estimated GFR > 60, BUN/Creatinine Ratio 15.8, CBC w Diff NO MAN DIFF REQ, RBC 5.21, MCV 86.8, MCH 29.0, MCHC 33.4, RDW 14.1, MPV 7.6, Gran % 59.9, Lymphocytes % 26.4, Monocytes % 8.9, Eosinophils % 4.2, Basophils % 0.6, Absolute Granulocytes 6.6 H, Absolute Lymphocytes 2.9, Absolute Monocytes 1.0 H, Absolute Eosinophils 0.5, Absolute Basophils 0.1, Urine Color YEL, Urine Clarity CLEAR, Urine pH 6.0, Ur Specific [place] 1.025, Urine Protein NEG, Urine Ketones NEG, Urine Nitrite NEG, Urine Bilirubin NEG, Urine Urobilinogen 0.2, Ur Leukocyte Esterase NEG, Ur Microscopic EXAM NOT REQUIRED, Urine Hemoglobin NEG, Urine Glucose NEG 02/26/18 0410: Troponin I < 0.01 02/25/18 1726: Anion Gap 9, Estimated GFR 50 L, BUN/Creatinine Ratio 14.3, Glucose 124 H, Calcium 9.5, Total Bilirubin 1.2, AST 25, ALT 22, Alkaline Phosphatase 70, Troponin I < 0.01, Total Protein 7.5, Albumin 4.1, Globulin 3.4, Albumin/ Globulin Ratio 1.2, Triglycerides 298 H, Cholesterol 187, LDL Cholesterol, Calc 78, HDL Cholesterol 50, Cholesterol/HDL Ratio 4, TSH 2.260, PT 11.8, INR 1.08, APTT 29, CBC w Diff NO MAN DIFF REQ, RBC 5.29, MCV 86.0, MCH 28.9, MCHC 33.6, RDW 14.1, MPV 7.3 L, Gran % 62.8, Lymphocytes % 23.9, Monocytes % 8.5, Eosinophils % 3.7, Basophils % 1.1, Absolute Granulocytes 7.0 H, Absolute Lymphocytes 2.7, Absolute Monocytes 1.0 H, Absolute Eosinophils 0.4, Absolute Basophils 0.1, ESR Westergren 13 H Dylan Hurley 02/27/18 1303: Attending Addendum Attending Brief Note 68-year-old man placed in observation status near syncope and weakness 2/2 dehydration and hypotension. Cardiology consulted and decrease diuretics. F/u echocardiogram and carotid ultrasound negative for acute pathology. Patient medically stable for discharge.
--- NOTE | 2018-02-26 12:19 | ULTRASOUND REPORT ---
EXAMINATION: DUPLEX BILATERAL CAROTID ULTRASOUND CLINICAL INFORMATION: TIA. COMPARISON: None. TECHNIQUE: Duplex bilateral carotid US was performed using real-time ultrasound and Doppler techniques (integrating B-mode 2D vascular images, Doppler spectral analysis and color flow Doppler imaging). These techniques were utilized to interrogate the extracranial carotid and vertebral arteries bilaterally. The degree of stenosis is based off criteria similar to NASCET. FINDINGS: No plaque is seen at the carotid bifurcations or within the internal carotid arteries. All velocities are within normal limits. ADDITIONAL FINDINGS: The vertebral arteries show antegrade flow. The external carotid arteries show no significant stenosis. IMPRESSION: No evidence of a hemodynamically significant stenosis involving the internal carotid arteries.
--- NOTE | 2018-02-26 12:29 | ECHOCARDIOGRAM REPORT ---
TANVI REARDON Age: 68 : 1950 Gender: M Exam Date: 02/26/2018 10:31 Exam Location: 1 [address] Ht (in): 72 Wt (lb): 280 BSA: 2.59 BP: 128 / 80 Ordering Physician: Brian Graham MD Referring Physician: Brian Graham MD Technologist: Dax Flores [facility] Room Number: 185-2 Indications: HYPERTENSION Rhythm: Sinus Technical Quality: Fair FINDINGS Left Ventricle Normal size left ventricle. Mild concentric left ventricular hypertrophy. Normal left ventricular ejection fraction visually estimated at >65 %. Abnormal relaxation filling pattern of the left ventricle for age (stage 1 diastolic dysfunction). Right Ventricle The right ventricle is normal in size and function. Right Atrium The right atrium is normal in size. Left Atrium The left atrium is normal in size. The interatrial septum is intact. Mitral Valve The mitral valve is normal in structure and function. There is no mitral regurgitation. Aortic Valve Focal thickening of the aortic valve cusps. No aortic stenosis. No aortic regurgitation. Tricuspid Valve The tricuspid valve is normal in structure and function. There is no tricuspid regurgitation. Unable to estimate the right ventricular systolic pressure. Pulmonic Valve Structurally normal pulmonic valve. There is pulmonic regurgitation. Pericardium Normal pericardium without effusion. No pleural effusion. Great Vessels Normal aortic root dimension. Borderline dilated ascending aorta. The aortic arch and great vessels are not well seen. CONCLUSIONS Mild concentric left ventricular hypertrophy. Normal left ventricular ejection fraction visually estimated at >65 Abnormal relaxation filling pattern of the left ventricle for age (stage 1 diastolic dysfunction). The left atrium is normal in size. The mitral valve is normal in structure and function. The mitral valve is normal in structure and function. Focal thickening of the aortic valve cusps. No aortic stenosis. Unable to estimate the right ventricular systolic pressure. Borderline dilated ascending aorta. The aortic arch and great vessels are not well seen. Levar Henao M.D. (Electronically Signed) Final Date: 26 February 2018 12:28 MEASUREMENTS (Male / Female) Normal Values 2D ECHO LV Diastolic Diameter PLAX 4.6 cm 4.2 - 5.9 / 3.9 - 5.3 cm LV Systolic Diameter PLAX 2.9 cm 2.1 - 4.0 cm LV Fractional Shortening PLAX 37.0 % 25 - 46 % LV Ejection Fraction 2D Teich 66.9 % IVS Diastolic Thickness 1.1 cm LVPW Diastolic Thickness 1.2 cm LV Relative Wall Thickness 0.5 RV Internal Dim ED PLAX 3.3 cm 1.9 - 3.8 cm LVOT Diameter 2.1 cm Aortic Root Diameter 3.0 cm LA Systolic Diameter LX 4.2 cm 3.0 - 4.0 / 2.7 - 3.8 cm Ascending Aorta Diameter 3.7 cm DOPPLER AV Peak Velocity 124.0 cm/s AV Peak Gradient 6.2 mmHg AV Mean Velocity 79.2 cm/s AV Mean Gradient 3.0 mmHg AV Velocity Time Integral 25.6 cm LVOT Peak Velocity 123.0 cm/s LVOT Peak Gradient 6.1 mmHg LVOT Mean Velocity 68.3 cm/s LVOT Mean Gradient 2.0 mmHg LVOT Velocity Time Integral 27.2 cm LVOT Stroke Volume 94.2 cm AV Area Cont Eq vti 3.7 cm AV Area Cont Eq pk 3.4 cm MV Peak Velocity 97.9 cm/s MV Peak Gradient 3.8 mmHg MV Mean Velocity 53.8 cm/s MV Mean Gradient 1.0 mmHg Mitral E Point Velocity 46.8 cm/s Mitral A Point Velocity 102.0 cm/s Mitral E to A Ratio 0.5 MV PHT Velocity 86.9 cm/s MV Deceleration [place] 276.0 cm/s MV Pressure Half Time 94.5 ms MV Area PHT 2.3 cm MV Deceleration Time 257.0 ms PV Peak Velocity 97.9 cm/s PV Peak Gradient 3.8 mmHg PV Mean Velocity 69.9 cm/s PV Mean Gradient 2.0 mmHg PV Velocity Time Integral 24.5 cm
[2018-02-26] MEDS ORDERED: HYDROCHLOROTHIA25 M1 PO ×2 (13:09→15:19)
[2018-02-26 14:15] VITALS: BP 136/80
[2018-02-26] MEDS ORDERED: DYRENIUM50 MG PO (15:18)
--- NOTE | 2018-02-26 16:11 | RADIOLOGY REPORT ---
EXAMINATION: XR CHEST CLINICAL INFORMATION: Rule out acute pathology. Elevated white blood cell count COMPARISON: 05/05/2016 TECHNIQUE: 2 views of the chest were obtained. FINDINGS: Chronic coarse interstitial prominence. No focal consolidation or mass. No pleural effusion or pneumothorax. Normal pulmonary vascularity. Cardiac silhouette remains enlarged. There are degenerative changes of the thoracic spine. IMPRESSION: No acute pulmonary disease. Diffuse chronic interstitial prominence.
== END 2018-02-26 16:05 ==
LOC: ERH 16:27 → 1NO 21:10 → ERHI 21:10 → ENRESERV 21:38 → ENTRNSPT 22:29 → EDTRNSPT 22:33 → EDTRNSPTSTS 22:33 → 1NO 22:45 → CMPTRNSPT 22:46 → 1NO 22:46
PROVIDERS: Physician Assistant Medical; Student in an Organized Health Care Education/Training Program
DX: G45.9 Transient cerebral ischemic attack, unspecified (principal); G47.33 Obstructive sleep apnea (adult) (pediatric); M10.9 Gout, unspecified; I10 Essential (primary) hypertension; E78.5 Hyperlipidemia, unspecified
CPT/HCPCS: 1288; 6020; 36415; 71046; 81003; 82436; 93005; 93010; 93306; G0378; J1644; J7508